=== PATIENT | female | born 1965 | race Caucasian/White ===

== ENCOUNTER → 2020-06-26 | Outpatient (CLI) | payer MEDICAID ==
--- NOTE | 2020-06-30 09:27 | MM ---
Reason for exam: screening (asymptomatic). Last mammogram was performed 6 years and 1 month ago. History: Patient is postmenopausal. Took hormonal contraceptives for 5 years. Physical Findings: A clinical breast exam by your physician is recommended on an annual basis and results should be correlated with mammographic findings. MG Screening Mammo w CAD Bilateral CC and MLO view(s) were taken. Prior study comparison: June 04, 2014, bilateral MG screening mammo w CAD. The breast tissue is heterogeneously dense. This may lower the sensitivity of mammography. No significant changes when compared with prior studies. ASSESSMENT: Negative, BI-RAD 1 RECOMMENDATION: Routine screening mammogram of both breasts in 1 year.
== END | disposition home or self-care (01) ==
LOC: RADMAMWWP 15:30
PROVIDERS: ATTEND Family Medicine
DX: Z12.31 Encounter for screening mammogram for malignant neoplasm of breast (principal)
CPT/HCPCS: 77067

== ENCOUNTER → 2022-09-07 | Outpatient (CLI) | payer MEDICAID ==
--- NOTE | 2022-09-07 14:30 | XR ---
EXAMINATION TYPE: XR ankle complete LT DATE OF EXAM: 09/07/2022 COMPARISON: None HISTORY: Injury, pain TECHNIQUE: 3 view left ankle with weightbearing images FINDINGS: Ankle mortise is intact. No acute fracture or dislocation is evident. There is some mild diffuse soft tissue swelling along the lateral malleolus. If additional evaluation of ligaments would be of benefit, MRI could be performed. Follow up exams can be performed 7-10 days from acute trauma for continued pain. IMPRESSION: 1. No acute osseous abnormality left ankle. 2. Mild diffuse soft tissue swelling lateral malleolus
== END | disposition home or self-care (01) ==
LOC: LABWHC1 13:25
PROVIDERS: ATTEND Podiatrist
DX: M25.472 Effusion, left ankle (principal)

== ENCOUNTER → 2023-12-15 | Outpatient (CLI) | payer MEDICAID ==
[2023-12-15 10:53] LABS: LDL Cholesterol,Calculated 136.2 mg/dL (0.0-131.0)
== END | disposition home or self-care (01) ==
LOC: LABWHC1 07:28
PROVIDERS: ATTEND Family Medicine
DX: Z00.00 Encounter for general adult medical examination without abnormal findings (principal)
CPT/HCPCS: 36415; 80061; 83036

== ENCOUNTER → 2024-01-23 | Outpatient (CLI) | payer MEDICAID ==
--- NOTE | 2024-01-24 12:45 | MM ---
Reason for Exam: Screening (asymptomatic). Last mammogram was performed 1 year(s) and 1 month(s) ago. Patient History: Menarche at age 10. First Full-Term at age 16. Postmenopausal. Patient used Hormonal Contraceptives for 5 years. Risk Values: Kennedi 5 year model risk: 1.0%. NCI Lifetime model risk: 5.3%. Prior Study Comparison: 06/04/2014 Bilateral Screening Mammogram, [facility]. 06/26/2020 Bilateral Screening Mammogram, [facility]. 12/07/2022 Bilateral MG 3D screening mammo w/cad, [facility]. Tissue Density: The breasts are heterogeneously dense, which may obscure small masses. Findings: Analyzed By CAD. Chronic nodularity on both sides. There is no suspicious group of microcalcifications or new suspicious mass in either breast. Overall Assessment: Benign, BI-RAD 2 Management: Screening Mammogram of both breasts in 1 year. . Patient should continue monthly self-breast exams. A clinical breast exam by your physician is recommended on an annual basis. This exam should not preclude additional follow-up of suspicious palpable abnormalities. Note on Kennedi scores and lifetime risk: 1. A Kennedi score greater than 3% is considered moderate risk. If this is the case, consider specialist referral to assess eligibility for a risk reducing agent. 2. If overall lifetime risk for the development of breast cancer is 20% or higher, the patient may qualify for future screening with alternating mammogram and breast MRI. [facility], , 01/24/2024 12:42 PM. Electronically signed and approved by: Aguila Brizuela M.D. Radiologist
== END | disposition home or self-care (01) ==
LOC: RADMAMWWP 16:02
PROVIDERS: ATTEND Family Medicine
CPT/HCPCS: 77063; 77067